=== PATIENT | female | born 1995 | race African-American/Black ===

== ENCOUNTER 2016-04-22 16:36 | Outpatient (CLI) | payer OTHER ==
[~2016-04-22] VITALS: Ht 167.6 cm; Wt 113.0 kg
[~2016-04-22 16:36] MED LIST: KENALOG,ARISTOC80 G1 TP; NAPROSYN500 MG PO; ZANTAC150 MG PO
[2016-04-22 17:01] VITALS: BP 131/71
[2016-04-22] MEDS ORDERED: VENTOLIN HFA18 GM IH (17:17)
[2016-04-22 18:37] VITALS: BP 125/68
[2016-04-22 19:34] VITALS: BP 109/79
[2016-04-23] MEDS ORDERED: ENDOCET 5-3251 EACH PO (23:35)
[2016-04-23] MEDS ORDERED: IBUPROFEN800 MG PO (23:35)
== END 2016-04-22 19:55 | disposition home or self-care (01) ==
LOC: LDRP-OP 16:36 → 2WEST 16:37 → LDRP-OP 05-26 12:30
DX: O47.1 False labor at or after 37 completed weeks of gestation (principal); O99.89 Other specified diseases and conditions complicating pregnancy, childbirth and the puerperium; Z3A.39 39 weeks gestation of pregnancy
CPT/HCPCS: 59025; G0378

== ENCOUNTER 2016-04-22 22:39 | Inpatient (IN) | payer OTHER ==
[~2016-04-22] VITALS: Ht 167.6 cm; Wt 113.6 kg
[~2016-04-22 22:39] MED LIST changes: +VENTOLIN HFA18 GM IH
[2016-04-22 22:54] VITALS: BP 132/75
[2016-04-22 23:22] VITALS: BP 133/102
[2016-04-22 23:24] VITALS: BP 130/79
[2016-04-22 23:53] VITALS: BP 156/102
[2016-04-22 23:56] VITALS: BP 149/87
[2016-04-23] VITALS (24 sets, daily range): BP systolic 118–170; BP diastolic 69–90
[2016-04-23 10:15] LABS: EOSINOPHIL (%) 0.9 % (0-5); EOSINOPHIL COUNT 0.1 K/uL (0-0.3); HEMATOCRIT 29.5 % (36.0-46.0); IMMATURE GRANULOCYTE (%) 0.5 % (0.0-0.7); MCH 25.1 PG (29.0-34.0); MCHC 31.9 G/DL (30.0-36.0); MCV 78.7 FL (83-99); MEAN PLAT.VOLUME 10.9 uM^3 (9.5-12.4); MONOCYTE COUNT 0.5 K/uL (0-0.8); NEUTROPHIL (%) 81.4 % (45-76); NEUTROPHIL COUNT 7.2 K/uL (1.8-6.4); PLATELET COUNT 315 K/uL (156-360); RBC DIS.WIDTH-CV 14.2 % (11.8-14.6); RBC DIS.WIDTH-SD 40.2 % (39-53); RED BLOOD COUNT 3.75 M/uL (3.80-5.20); WHITE BLOOD COUNT 8.8 K/uL (4.1-10.2)
[2016-04-23] MEDS ORDERED: IBUPROFEN800 MG PO (23:35)
[2016-04-23] MEDS ORDERED: ENDOCET 5-3251 EACH PO (23:35)
[2016-04-24] VITALS (10 sets, daily range): BP systolic 106–135; BP diastolic 58–80
[2016-04-24 07:55] LABS: MCH 25.7 PG (29.0-34.0); MCHC 32.9 G/DL (30.0-36.0); MCV 78.4 FL (83-99); MEAN PLAT.VOLUME 10.4 uM^3 (9.5-12.4); PLATELET COUNT 250 K/uL (156-360); RBC DIS.WIDTH-CV 14.5 % (11.8-14.6); RBC DIS.WIDTH-SD 41.8 % (39-53)
[2016-04-24 07:57] LABS: RED BLOOD COUNT 2.68 M/uL (3.80-5.20); WHITE BLOOD COUNT 24.6 K/uL (4.1-10.2)
[2016-04-24 09:36] LABS: HEMATOLOGY COMMENT 1 SMEAR COMPATIBLE; USER ID CL
[2016-04-24 09:37] LABS: EOSINOPHIL (%) 0 % (0-5); IMMATURE GRANULOCYTE (%) 0.4 % (0.0-0.7); IMMATURE GRANULOCYTE COUNT 0.1 K/uL; LYMPHOCYTE COUNT 0.9 K/uL (1.0-2.8); MONOCYTE (%) 4.5 % (3-12); MONOCYTE COUNT 1.1 K/uL (0-0.8); NEUTROPHIL (%) 91.3 % (45-76); NEUTROPHIL COUNT 22.4 K/uL (1.8-6.4)
[2016-04-25 03:05] VITALS: BP 104/52
[2016-04-25 07:10] VITALS: BP 118/62
[2016-04-25 08:43] LABS: EOSINOPHIL COUNT 0.2 K/uL (0-0.3); HEMATOCRIT 19.4 % (36.0-46.0); IMMATURE GRANULOCYTE (%) 0.4 % (0.0-0.7); IMMATURE GRANULOCYTE COUNT 0.1 K/uL; LYMPHOCYTE COUNT 1.7 K/uL (1.0-2.8); MCH 25.4 PG (29.0-34.0); MCV 79.8 FL (83-99); MEAN PLAT.VOLUME 10.8 uM^3 (9.5-12.4); MONOCYTE (%) 5.9 % (3-12); NEUTROPHIL (%) 82.4 % (45-76); NEUTROPHIL COUNT 13.8 K/uL (1.8-6.4); PLATELET COUNT 233 K/uL (156-360); RBC DIS.WIDTH-CV 14.7 % (11.8-14.6); RBC DIS.WIDTH-SD 42.6 % (39-53); RED BLOOD COUNT 2.44 M/uL (3.80-5.20); WHITE BLOOD COUNT 16.8 K/uL (4.1-10.2)
[2016-04-25 11:30] VITALS: BP 105/58
[2016-04-25 19:20] VITALS: BP 117/60
[2016-04-25 22:54] VITALS: BP 104/52
[2016-04-26 07:54] VITALS: BP 100/61
[2016-04-26 15:20] VITALS: BP 114/61
[2016-04-26 22:06] VITALS: BP 110/67
[2016-04-27 07:30] VITALS: BP 104/63
[2016-04-27] MEDS ORDERED: IRON325 M1 PO (11:34)
[2016-04-27] MEDS ORDERED: ENDOCET 5-3251 EACH PO (15:22)
[2016-04-27] MEDS ORDERED: IBUPROFEN800 MG PO (15:22)
== END 2016-04-27 14:40 | disposition home or self-care (01) | DRG 765 ==
LOC: LDRP-OP 22:39 → 2WEST 22:40 → LDRP-OP 05-26 22:09
PROVIDERS: Midwife; Obstetrics & Gynecology
DX: O64.0XX0 Obstructed labor due to incomplete rotation of fetal head, not applicable or unspecified (principal); O41.03X0 Oligohydramnios, third trimester, not applicable or unspecified; O62.1 Secondary uterine inertia; O76 Abnormality in fetal heart rate and rhythm complicating labor and delivery; O99.824 Streptococcus B carrier state complicating childbirth; O99.89 Other specified diseases and conditions complicating pregnancy, childbirth and the puerperium; R50.9 Fever, unspecified; O99.02 Anemia complicating childbirth; D50.9 Iron deficiency anemia, unspecified; D62 Acute posthemorrhagic anemia; O99.214 Obesity complicating childbirth; E66.9 Obesity, unspecified; Z37.0 Single live birth; Z3A.39 39 weeks gestation of pregnancy
CPT/HCPCS: 59025; 85025; 87070; 87075; 87205; 88307; C1755; C1776; G0378; J0295; J0595; J1050; J1580; J1885; J2175; J2250; J2274; J2540; J3010; J7050; J7120

== ENCOUNTER 2016-10-29 05:04 | Emergency (ER) | payer OTHER ==
[~2016-10-29] VITALS: Ht 167.6 cm; Wt 111.0 kg
[~2016-10-29 05:04] MED LIST changes: +ENDOCET 5-3251 EACH PO; +IBUPROFEN800 MG PO; +IRON325 M1 PO
[2016-10-29] MEDS ORDERED: PEN-VEE K,VEET500 MG PO (05:42)
[2016-10-29 05:58] VITALS: BP 124/88
== END 2016-10-29 05:59 | disposition home or self-care (01) ==
LOC: EME 05:04
DX: J02.0 Streptococcal pharyngitis (principal)
CPT/HCPCS: 87651 90; 99281; 99284